=== PATIENT | male | born 1980 | race Two or more races ===

== ENCOUNTER 2023-09-17 15:18 | Emergency (ER) | payer MEDICAID, OTHER ==
[~2023-09-17] VITALS: Ht 172.7 cm; Wt 81.8 kg
[2023-09-17 21:30] VITALS: BP 143/92; PULSE 87; RESP 19; TEMP 98; O2SAT 100
== END 2023-09-17 21:30 | disposition home or self-care (01) ==
LOC: EDBD 15:18 → ER 15:18
DX: M25.511 Pain in right shoulder (principal); V98.8XXA Other specified transport accidents, initial encounter; Y93.89 Activity, other specified; Y92.89 Other specified places as the place of occurrence of the external cause; Y99.8 Other external cause status
CPT/HCPCS: 73000; 73030